=== PATIENT | male | born 1960 ===

== ENCOUNTER 2019-04-01 10:40 | Inpatient (IN) ==
[2019-04-01] MEDS: PERCOCET-5 PO PRN ×4 (12:09→22:47)
[2019-04-01] MEDS ORDERED: SALINE LOCK IV FLUID XX ONE (12:13)
[2019-04-01] MEDS: NS 1,000 ML IV SCH (16:18)
[2019-04-01] MEDS ORDERED: MAXIPIME 2 GM in NS 100 ML IV SCH (16:30)
[2019-04-01] MEDS ORDERED: VANCOMYCIN IV PER PHARMACY MISC SCH (16:30)
[2019-04-01 17:31] LABS: BASO# 0.04 X1000 (0.0-0.2); BASO% 0.4 % (0.0-0.8); EOS# 0.35 X1000 (0.0-0.7); EOS% 3.3 % (0.0-10.0); HEMOGLOBIN 12.8 g/dL (14.0-18.0); IMM GRAN# 0.03 X1000 (0.0-0.04); IMM GRAN% 0.3 % (0.0-0.5); LYMPH# 2.84 X1000 (1.2-3.4); LYMPH% 26.6 % (20.5-51.1); MCH 31.8 PG (27-31); MCHC 33.7 g/dL (33-37); MCV 94.3 FL (81-99); MONO# 0.75 X1000 (0.11-0.59); MPV 8.9 FL (7.4-10.4); NEUT# 6.65 X1000 (1.4-6.5); NEUT% 62.4 % (42.2-75.2); PLT 380 X1000 (130-400); RBC 4.03 XMIL (4.7-6.1); RDW 12.7 % (11.5-14.5); WBC 10.66 X1000 (4.8-10.8)
[2019-04-01 18:15] LABS: AGAP 10; ALB/GLOB RATIO 0.8; ALBUMIN 3.4 g/dL (3.5-5.0); ALKALINE PHOSPHATASE 85 U/L (32-122); BUN 9 mg/dL (8-22); CALCIUM 9.1 mg/dL (8.8-10.2); CHLORIDE 101 mmol/L (98-107); COSMO 272; CREATININE 0.8 mg/dL (0.7-1.2); GLUCOSE 95 mg/dL (70-104); GOT 24 U/L (10-34); GPT 38 U/L (10-44); POTASSIUM 3.8 mmol/L (3.5-5.1); SODIUM 137 mmol/L (136-145); TCO2 26 mmol/L (25-35); TOTAL BILIRUBIN 0.31 mg/dL (0.20-1.00); TOTAL PROTEIN 7.9 g/dL (6.3-8.3)
[2019-04-01] MEDS: MAXIPIME 2 GM in NS 100 ML IV SCH (18:37)
[2019-04-01] MEDS: VANCOMYCIN 2,000 MG in NS 500 ML IV SCH (21:00)
--- NOTE | 2019-04-01 21:32 | INFECTIOUS DISEASE CONSULT REP ---
DATE: 04/01/2019 CONCLUSION: Mr. Abernathy has a left foot osteomyelitis and the plan is for Dr. Fletcher to do surgery on that left foot tomorrow. RECOMMENDATIONS: At this point, we have ordered basic blood work for the patient, as well as plans for broad-spectrum coverage using IV vancomycin per Pharmacy dosing and Maxipime 2 g IV every 12 hours. He has previously had a rash with penicillin years ago, so we will have the nurse watch him during his first dose of cefepime. Hopefully, Dr. Fletcher will be able to get a culture from surgery tomorrow, which will help to guide the patient's treatment. Based on the organism, he will need between 6 and 8 weeks of treatment for the osteomyelitis. He has been instructed to report any side effects of the medications which may include rash, diarrhea, oral candidiasis, ototoxicity, and renal toxicity. These plans have been discussed with and recommended by Dr. Simental. DISCUSSION: Mr. Abernathy states that this episode started on March 11, when he dropped a large can of boiled peanuts on his foot at work. The area got continually worse with redness and swelling. He has been on cefdinir per Dr. Fletcher, with some improvement to the swelling of the left lower extremity. There is continued erythema and pain to that site. Noted that he states he had a Staph infection to his left arm, which has just recently healed. He did receive antibiotics and wound care. However, he does not remember the name of the antibiotic or if the Staph was resistant. LAB & X-RAY: Unavailable at this point. REVIEW OF SYSTEMS: Constitutional: The patient has had a temperature of up to 101 at home with intermittent chills and a weight loss of 24 pounds which started when he was scratched at work 10 weeks ago with a Staph infection to his left forearm. HEENT: He denies any vision or hearing problems. No headaches or dizziness. Endocrine: He is diabetic, type 2, with insulin and oral antidiabetic medications. Cardiovascular: No chest pain or palpitations. Respiratory: He does have shortness of breath and cannot walk far. 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 He does have a smoker's cough which is dry, with history of hypertension, and congestive heart failure. Myocardial infarction in 2016, with no intervention. He also has hyperlipidemia. Gastrointestinal: No nausea, vomiting, or diarrhea. He has had decreased appetite with weight loss. No gastric ulcers or acid reflux. Genitourinary: No dysuria or flank pain. Musculoskeletal: He does have arthritis with joint and muscle pain. He is unable to walk far due in part to the arthritis. Hematology/Oncology: He denies any history of cancers or blood dyscrasias. Psychiatric: No anxiety or depression. PAST MEDICAL HISTORY: Includes diabetes type 2, hypertension, COPD, congestive heart failure, myocardial infarction, and hyperlipidemia. PAST SURGICAL HISTORY: Umbilical and gastric lining hernias surgically repaired, and neck fusion. INFECTIOUS DISEASE: No history of pneumonia or urinary tract infections, but he has had a left forearm Staph infection with specifics unknown. FAMILY HISTORY: His mom had heart disease and cancer. SOCIAL HISTORY: He lives with his . He has a [id number]-year smoking history. He states he has smoked approximately 45 years and has smoked more than 4 packs a day for most of those years. He has no pets at home. 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 ALLERGIES: Penicillin from when he was a child and he had a rash. However, he is currently taking cefdinir without any issues. MEDICATIONS: Include aspirin, Lipitor, Coreg, cefdinir, Lasix, glipizide, metformin, hydrocodone, losartan, Norvasc, and Trulicity. PHYSICAL EXAMINATION: Vital Signs: Temperature is 97.6 degrees, pulse rate 69, respiratory rate 18, blood pressure 120/62, O2 saturation is 99% on room air. General: This is a somewhat ill appearing, middle-aged gentleman. He is lying in the bed, currently in no acute distress. HEENT: Atraumatic, normocephalic. Oral mucous membranes are pink and moist. Conjunctivae are pink. Neck: Supple. Trachea is midline. Cardiovascular: Heart rate is regular. Respiratory: Lung sounds have some mild wheezes noted in the upper lobes. Diminished in the mid and bases. No work of breathing is noted at rest. Abdomen: Soft, obese, and nontender. Bowel sounds are active. Integumentary: Skin is warm, dry, and intact. There is some erythema and edema noted to the left foot, but no open areas. Neurologic: He is awake, alert, oriented, able to move around in the bed and ambulate independently. Thank you for allowing us to see Mr. Abernathy. Dictated by JACQUIE Garzon for Deandre Simental MD cc: MD Jesus Grimes MD MTDD
[2019-04-02] MEDS: PERCOCET-5 PO PRN ×6 (02:33→19:56)
[2019-04-02] MEDS: NS 1,000 ML IV SCH (06:18)
[2019-04-02] MEDS: VANCOMYCIN 2,000 MG in NS 500 ML IV SCH ×2 (09:43→22:49)
[2019-04-02] MEDS ORDERED: FENTANYL ONE (11:01)
[2019-04-02] MEDS ORDERED: VERSED ONE (11:01)
--- NOTE | 2019-04-02 11:01 | HISTORY AND PHYSICAL ---
CHIEF COMPLAINT: Left foot cellulitis. HISTORY OF PRESENT ILLNESS: Mr. Abernathy is a 58-year-old male with a past medical history of type [address] Fletcher's office yesterday with a left painful foot. Mr. Abernathy states, about 3 weeks ago, he dropped a can of peanuts on the foot. Ever since then, it has been increasingly painful and swollen. He states over the last couple of days, it had increasing erythema to the area. The foot is now very tender. He is having trouble weightbearing on it. He presented to clinic for further evaluation and treatment. On arrival to the clinic, Dr. Fletcher decided that he needed to be admitted for IV antibiotics as well as an infectious disease consult. It was also discussed that we would do a bone biopsy with possible irrigation and debridement today in the OR. PAST MEDICAL HISTORY: Diabetes mellitus type 2, primary essential hypertension. ALLERGIES: Penicillins. SOCIAL HISTORY: Mr. Abernathy lives at home with his . He denies tobacco, alcohol, or illicit drug use. CURRENT MEDICATIONS: Aspirin 81 mg p.o. daily, Lipitor 40 mg p.o. at bedtime, Coreg 6.5 mg p.o. b.i.d., Lasix 40 mg p.o. daily, metformin 1 tablet p.o. daily, Elrod 7.5 mg 4 times a day as needed, losartan potassium 100 mg p.o. daily, Norvasc 5 mg p.o. at bedtime, Trulicity 1.5 mg subcutaneously as directed. REVIEW OF SYSTEMS: A 10 point review of systems was obtained and completed, and was negative except for what was mentioned above in the HPI. PHYSICAL EXAMINATION: CURRENT VITAL SIGNS: Temperature is 98.1 degrees, pulse is 100, respirations 16, blood pressure 122/92, and he is 95% on room air. GENERAL: This is a 58-year-old male in no acute distress. NEUROLOGICAL: He is alert and oriented x3 with no focal deficits. HEENT: Head is atraumatic, normocephalic. Pupils equal, round, reactive to light. CARDIOVASCULAR: Regular rate and rhythm. PULMONARY: Breathing is even and nonlabored. ABDOMEN: Appears nondistended. EXTREMITIES: The left lower extremity does have quite a bit of erythema throughout the midfoot and forefoot. He is very tender to touch. He has quite a bit of edema. He does have a 2+ pedal pulse. He does have good sensation to the hindfoot. About the midfoot, he starts to have decreased sensation. In the toes, he still has sensation but it is greatly decreased. LABORATORY DATA: White count is 10.66, hemoglobin and hematocrit are 12.8 and 38, platelet count is 127,000. BUN and creatinine are 9 and 0.8. ASSESSMENT: Left foot cellulitis. PLAN: We are going to consult Dr. Simental with infectious disease. We are going to let him get him started on some IV antibiotics. We are going to take him to the OR today and plan to do a bone biopsy of that first metatarsal. If we get in there and there is purulent drainage, we will plan on doing an irrigation and debridement to bone while we are in there and place antibiotic beads. If everything is nice and calm internally in the foot, we will just plan to do the bone biopsy and send that off to rule out osteomyelitis. We discussed the risks and benefits of the procedure with Mr. Abernathy. His is at the bedside. Risks include, but are not limited to, damage to nerves, arteries, veins, DVT, risk of infection, poor wound healing, risk of general anesthesia, and other imponderables. The patient understands and wished to proceed. He is NPO. We are going to plan to do this today. Dictated by JACQUIE Zayas for Jesus Fletcher MD cc: JACQUIE Zayas MD [facility]
[2019-04-02] MEDS ORDERED: DIPRIVAN 1% ONE (11:02)
[2019-04-02] MEDS ORDERED: SENOKOT PO PRN (14:50)
[2019-04-02] MEDS ORDERED: ZOFRAN IV PRN (14:50)
[2019-04-02] MEDS: DILAUDID ONE ×4 (14:55→15:18)
[2019-04-02] MEDS: MAXIPIME 2 GM in NS 100 ML IV SCH (17:02)
--- NOTE | 2019-04-02 19:44 | OPERATIVE NOTE ---
PROCEDURE DATE: 04/02/2019 PREOPERATIVE DIAGNOSES: 1. Left first metatarsal osteomyelitis. 2. Left foot abscess and cellulitis. POSTOPERATIVE DIAGNOSES: 1. Left first metatarsal osteomyelitis. 2. Left foot abscess and cellulitis. PROCEDURE: 1. Left irrigation and debridement of foot to bone. 2. Left partial excision of first metatarsal. SURGEON: Jesus Fletcher MD. BIOLOGICAL PLANT OPERATOR: JACQUIE Zayas. She was an integral part of the case, helping with all aspects of the case, helping to increase our OR efficiency greatly. ANESTHESIA: General with LMA. TOURNIQUET TIME: Less than an hour. SPECIMENS/PATHOLOGY: Cultures were taken and sent to Pathology. IMPLANTS: None. DISPOSITION: PACU, hemodynamically stable. INDICATION FOR PROCEDURE: Mr. Abernathy is a 58-year-old male, who had trauma a few weeks ago to his foot. Unfortunately, developed some redness and that got a lot worse. He came into my office yesterday. I admitted him to the hospital and got him on IV antibiotics. I discussed with him about surgical intervention today, and he expressed understanding and wished to proceed. DESCRIPTION OF PROCEDURE: Mr. Abernathy was identified in the preoperative holding area. The left foot was marked as the correct surgical site. He was then wheeled to the operating room and placed supine on the operating table. All bony prominences were well padded. He was induced under general anesthesia. LMA was placed. Tourniquet was placed to the left thigh. Left lower extremity then prepped with chlorhexidine gluconate scrub and then ChloraPrep, and draped in normal sterile fashion. Surgical pause was performed. We identified the correct patient, correct side, and the correct procedure. Preoperative antibiotics were given. There were no ulcers to the foot or areas of skin breakdown. We started with a medial incision over the first metatarsal. I cut through down to the metatarsal and there was purulence that came up. We took cultures at that time. I then opened the incision up a little bit bigger so we could get at the whole metatarsal. It looked like there was pus all in the subcutaneous tissue, and then there was pus also underneath the periosteum, and really all of the periosteum had been elevated off of that first metatarsal secondary to all the purulence that was there. I then drilled into the bone and there was pus inside the bone. I ended making several drill holes in the bone, then using a rongeur to connect those and made a trough. I then curetted out a lot of that purulent material that was inside the bone back to healthy-appearing bone. I then used a big curette and curetted all of the subcutaneous tissue and all of the soft tissue around that area to perform a thorough debridement, and used a rongeur also to perform a thorough debridement. We accessed all of the areas around the aspect of the foot so that no purulence was left. We then irrigated everything copiously with normal saline. I then closed some of the periosteum with 2-0 Maxon and then closed the skin with nylon. Adaptic, 4 x 4's, ABD, soft roll, and posterior splint was applied. Tourniquet was let down. He had good capillary refill return to the toes. He was then wheeled from general anesthesia, moved to his own bed, and taken to PACU in stable condition. PLAN: Postoperatively, he will be nonweightbearing to left lower extremity. He is admitted. Infectious disease is following along as well, with IV antibiotic recommendations, and we will check on him in the morning. cc: Jesus Fletcher MD
[2019-04-02] MEDS: MORPHINE IV PRN (22:28)
[2019-04-03] MEDS: MAXIPIME 2 GM in NS 100 ML IV SCH ×2 (03:31→06:46)
[2019-04-03] MEDS: MORPHINE IV PRN ×3 (03:32→20:35)
[2019-04-03] MEDS: LOVENOX SUBQ SCH (06:38)
[2019-04-03] MEDS: PERCOCET-5 PO PRN ×3 (06:38→18:16)
--- NOTE | 2019-04-03 08:28 | ORTHOPAEDICS PROGRESS NOTE ---
DATE: 04/03/2019 SUBJECTIVE: Mr. Abernathy is sitting up in bed this morning. Overall feeling okay. OBJECTIVE: Right lower extremity exam: Splint is clean, dry, and intact. He has good capillary refill to all the toes. He has numbness to the toes. ASSESSMENT: Right first metatarsal osteomyelitis status post irrigation and debridement. PLAN: I discussed with Mr. Abernathy about his surgery. We had to trough the bone open and really wash everything out. There was a lot of purulence everywhere. He is on IV antibiotics now. We do not have any growth from his cultures yet although gram-positive cocci were seen on his Gram stain. He will remain on broad-spectrum IV antibiotics. Dr. Simental is seeing him from an Infectious Disease standpoint. Mr. Abernathy is nonweightbearing to the right lower extremity for now. We will continue to assess to see if he is responding to the IV antibiotics and if we need to do another washout in a few days. cc: Jesus Fletcher MD
[2019-04-03] MEDS: PERIDEX MT SCH ×2 (10:04→20:30)
[2019-04-03] MEDS: VANCOMYCIN 2,000 MG in NS 500 ML IV SCH (12:15)
--- NOTE | 2019-04-03 18:56 | INFECTIOUS DISEASE PROGRESS NO ---
DATE: 04/03/2019 The patient has left foot methicillin-resistant Staph aureus osteomyelitis, cellulitis and abscess. I suspect that the patient will not grow another pathogen besides the methicillin- resistant Staph aureus. MEDICATIONS: The patient is on a combination of vancomycin and cefepime. PHYSICAL EXAMINATION: Vital Signs: Temperature is 97.7 degrees, pulse 70, respirations 20, blood pressure 180/94. General: This is an obese, middle-aged male. He is in no acute distress. Head, eyes, ears, nose, and throat: He can hear my spoken words and see near objects. No drainage noted from the nose or the ears. Neck: No pain with movement. Lungs: Clear to auscultation. Cardiovascular: Regular heart rate. Abdomen: Soft and nontender. Extremities: The left foot has a large dressing and splint around it. Neurologic: The patient is alert. He can move his extremities. There is no tremor. LAB AND X-RAY: There is new no new radiographic study. The patient's culture is growing presumptive methicillin-resistant Staph aureus. ASSESSMENT AND PLAN: Patient has methicillin-resistant Staph aureus left foot infection as mentioned above. I have discontinued cefepime. I plan to continue vancomycin. I plan to treat the patient for a total of 8 weeks with IV vancomycin. I went over again with the patient how important it would be for him to lose weight and keep good control of his diabetes and to stop smoking. COMORBIDITIES: The patient is obese. He has chronic obstructive pulmonary disease, diabetes mellitus and myocardial infarction. cc: MD Jesus Grimes MD
[2019-04-04] MEDS: VANCOMYCIN 2,000 MG in NS 500 ML IV SCH ×2 (01:08→15:09)
[2019-04-04] MEDS: MORPHINE IV PRN ×5 (03:15→20:00)
[2019-04-04] MEDS: LOVENOX SUBQ SCH (06:00)
[2019-04-04] MEDS: NS 1,000 ML IV SCH (08:09)
[2019-04-04] MEDS: PERIDEX MT SCH ×2 (09:51→21:29)
[2019-04-04] MEDS: PERCOCET-5 PO PRN (21:29)
[2019-04-05] MEDS: VANCOMYCIN 2,000 MG in NS 500 ML IV SCH ×2 (02:43→15:32)
[2019-04-05] MEDS: MORPHINE IV PRN ×4 (05:12→20:40)
[2019-04-05] MEDS: LOVENOX SUBQ SCH (05:12)
[2019-04-05 06:17] LABS: BASO# 0.02 X1000 (0.0-0.2); BASO% 0.2 % (0.0-0.8); EOS# 0.34 X1000 (0.0-0.7); EOS% 3.7 % (0.0-10.0); HEMATOCRIT 37.7 % (42.0-52.0); HEMOGLOBIN 12.5 g/dL (14.0-18.0); IMM GRAN# 0.03 X1000 (0.0-0.04); IMM GRAN% 0.3 % (0.0-0.5); MCH 30.7 PG (27-31); MCHC 33.2 g/dL (33-37); MCV 92.6 FL (81-99); MONO# 0.73 X1000 (0.11-0.59); MPV 9.2 FL (7.4-10.4); NEUT% 64.8 % (42.2-75.2); PLT 441 X1000 (130-400); RBC 4.07 XMIL (4.7-6.1); RDW 12.4 % (11.5-14.5); WBC 9.12 X1000 (4.8-10.8)
[2019-04-05 06:47] LABS: AGAP 12; BUN 7 mg/dL (8-22); CALCIUM 8.8 mg/dL (8.8-10.2); CHLORIDE 104 mmol/L (98-107); COSMO 275; CREATININE 0.6 mg/dL (0.7-1.2); GLUCOSE 122 mg/dL (70-104); POTASSIUM 4.1 mmol/L (3.5-5.1); SODIUM 138 mmol/L (136-145); TCO2 22 mmol/L (25-35)
[2019-04-05] MEDS: NS 1,000 ML IV SCH (09:59)
[2019-04-05] MEDS: PERIDEX MT SCH ×2 (10:00→21:03)
[2019-04-05] MEDS: PERCOCET-5 PO PRN ×2 (12:11→17:39)
--- NOTE | 2019-04-05 14:27 | ORTHOPAEDICS PROGRESS NOTE ---
DATE: 04/05/2019 SUBJECTIVE DATA: Mr. Abernathy is laying comfortably in bed with his at the bedside. He states his pain is much better. He has no issues. OBJECTIVE DATA: Left lower extremity exam: The surgical dressing is clean, dry, and intact. I was able to look at the toes and the forefoot which show no erythema. I do not see any drainage. He has good sensation to the toes. ASSESSMENT: Status post left foot irrigation and debridement to bone. PLAN: The plan is for Mr. Abernathy to receive 8 weeks of IV vancomycin. He was positive for MRSA today. We are going to work to get the PICC line and home infusion therapy setup on Saturday. The PICC line people are out today and tomorrow, so we will plan on him staying in the hospital until Saturday. We will work on getting his IV antibiotics setup for outpatient as well. It sounds like they are going to do home health and do it in the home. He will be nonweightbearing to this left lower extremity. I am going to come in tomorrow and put him in a new splint as this one is getting a little uncomfortable for him. That way we can take a good look at the incision and make sure everything is nice and calm. As long as things continue to look good, we will plan to get him discharged on Saturday after he gets his PICC line and IV antibiotics setup. If he does have any reoccurring erythema, drainage, or a lot of swelling, we may keep him longer. We will check on him again tomorrow. Dictated by JACQUIE Zayas for Jesus Fletcher MD cc: JACQUIE Zayas MD
--- NOTE | 2019-04-05 14:44 | INFECTIOUS DISEASE PROGRESS NO ---
DATE: 04/05/2019 PRESENT ILLNESS: The patient has a left foot methicillin-resistant Staph aureus osteomyelitis, cellulitis, and abscess. MEDICATIONS: The patient is receiving vancomycin as a single agent. PHYSICAL EXAMINATION: Vital Signs: Temperature is 98 degrees, pulse 79, respirations 16, blood pressure is 158/92. General: This is an obese, middle-aged male. He is in no acute distress. Head, eyes, ears, nose, throat: He can hear my spoken words and see near objects. There is no drainage coming from his nose or ears. I did not see any white patches on his tongue. Neck: No pain with movement. Lungs: Clear to auscultation. Cardiovascular: Heart rate is regular. Abdomen: Soft and nontender. Extremities: The patient has a large left foot dressing and splint around his left leg. The dressing is intact. Neurologic: Patient is alert. He can move his extremities. There is no tremor. LAB AND X-RAY: CBC today shows a white count of 9,120, hemoglobin 12.5, and platelet count 441,000. Creatinine is 0.6. GFR is greater than 60. A culture from the patient's foot was positive for methicillin-resistant Staph aureus. There is no new radiographic study on the patient's foot. ASSESSMENT AND PLAN: The patient has methicillin-resistant Staphylococcus aureus left foot infection as mentioned above. The patient will be going home on April 07. I have ordered that a PICC be placed and that [facility] be consulted to supply the patient's home IV vancomycin. The patient will need an 8 week treatment course. He will have had 4 days of treatment in here. Therefore, he will have 52 days left of treatment with vancomycin. The patient will be given an appointment to come to my office in 26 days and then again at 52 days. With the last visit, hopefully everything will look good and will be able to stop his IV vancomycin and to remove his PICC. I have talked with the patient about how important it is for him to lose weight, to control his diabetes well, and to stop smoking. COMORBIDITIES: The patient is obese. He has chronic obstructive pulmonary disease. He has diabetes mellitus. He has had a myocardial infarction and he is a cigarette smoker. cc: MD Jesus Grimes MD
[2019-04-05] MEDS: BENADRYL PO PRN (21:03)
[2019-04-06] MEDS: VANCOMYCIN 2,000 MG in NS 500 ML IV SCH ×2 (02:57→14:54)
[2019-04-06] MEDS: MORPHINE IV PRN ×3 (03:00→18:27)
[2019-04-06] MEDS: LOVENOX SUBQ SCH (06:37)
[2019-04-06] MEDS: PERCOCET-5 PO PRN ×2 (08:23→14:40)
[2019-04-06] MEDS: PERIDEX MT SCH ×2 (08:23→21:00)
--- NOTE | 2019-04-06 12:42 | ORTHOPAEDICS PROGRESS NOTE ---
DATE: 04/06/2019 SUBJECTIVE: Mitchel Abernathy is a 57-year-old male with left foot osteomyelitis. He is complaining primarily of itching. OBJECTIVE: He is a well-developed, well-nourished male. He is alert and cooperative with the exam. I have taken down his dressing today. His wound looks good. Dr. Simental also looked at it as well. IMPRESSION: Left foot osteomyelitis. PLAN: He is going to get a PICC line and home IV antibiotics starting tomorrow. He will likely go home tomorrow. cc: MD Jesus Mccullough MD
[2019-04-06] MEDS: NS 1,000 ML IV SCH (14:25)
[2019-04-06] MEDS: BENADRYL PO PRN (18:27)
[2019-04-07] MEDS: MORPHINE IV PRN (00:42)
[2019-04-07] MEDS: VANCOMYCIN 2,000 MG in NS 500 ML IV SCH (04:08)
[2019-04-07 05:55] LABS: BASO# 0.04 X1000 (0.0-0.2); BASO% 0.4 % (0.0-0.8); EOS# 0.32 X1000 (0.0-0.7); EOS% 3.6 % (0.0-10.0); HEMATOCRIT 38.7 % (42.0-52.0); HEMOGLOBIN 12.9 g/dL (14.0-18.0); IMM GRAN# 0.05 X1000 (0.0-0.04); IMM GRAN% 0.6 % (0.0-0.5); LYMPH# 2.24 X1000 (1.2-3.4); LYMPH% 25.1 % (20.5-51.1); MCH 31.1 PG (27-31); MCHC 33.3 g/dL (33-37); MCV 93.3 FL (81-99); MONO% 6.7 % (1.7-9.3); MPV 8.9 FL (7.4-10.4); NEUT# 5.69 X1000 (1.4-6.5); NEUT% 63.6 % (42.2-75.2); PLT 463 X1000 (130-400); RBC 4.15 XMIL (4.7-6.1); RDW 12.7 % (11.5-14.5); WBC 8.94 X1000 (4.8-10.8)
[2019-04-07 06:03] LABS: INR 1.18; PROTIME 15.2 Seconds (11.0-16.0)
[2019-04-07] MEDS: LOVENOX SUBQ SCH (06:48)
[2019-04-07] MEDS: PERCOCET-5 PO PRN ×3 (07:15→15:06)
--- NOTE | 2019-04-07 07:51 | ORTHOPAEDICS PROGRESS NOTE ---
DATE: 04/07/2019 SUBJECTIVE: Mr. Abernathy is sitting up in bed this morning. OBJECTIVE: Left lower extremity exam, we took the dressing and splint down this morning. I then took a look at his wound. Incision actually looked fairly dry overall. There is some peeling skin around there but a lot of the swelling has come down and a lot of his erythema has begun to resolve. ASSESSMENT: 1. Left first metatarsal osteomyelitis. 2. Left foot abscess. 3. Status post irrigation and debridement. PLAN: I discussed with Mr. Abernathy about the foot. I want him to be nonweightbearing at this point. He will need 8 weeks of IV antibiotics per Dr. Simental's recommendations. I am okay with him going home today if he can get his PICC in today. We will plan on discharging him this afternoon. I would like to see him this Saturday in clinic to evaluate his wound. He will go home with Percocet for pain control. cc: Jesus Fletcher MD
[2019-04-07] MEDS ORDERED: NS 250 ML ONE (08:57)
[2019-04-07] MEDS: PERIDEX MT SCH (09:52)
[2019-04-07 15:36] VITALS: BP 174/96
--- NOTE | 2019-04-14 15:54 | DISCHARGE SUMMARY ---
ADMISSION DATE: 04/01/2019 DISCHARGE DATE: 04/07/2019 ADMITTING DIAGNOSES: 1. Left foot abscess and cellulitis. 2. Left foot metatarsal osteomyelitis. 3. Diabetes mellitus type 2. DISCHARGE DIAGNOSES: 1. Left foot abscess and cellulitis. 2. Left foot metatarsal osteomyelitis. PROCEDURES: On 04/02/2018, Dr. Fletcher performed a left irrigation debridement of foot to bone with partial excision of the first metatarsal. HOSPITAL COURSE: Mr. Abernathy is a 58-year-old male who had a trauma a few weeks ago to the foot. Dr. Fletcher saw him in the office. The foot had a lot of swelling and erythema. At the time that he was seen in the office, Dr. Fletcher actually admitted him to the hospital and had him started on IV antibiotics. They then discussed surgical intervention and the patient wished to proceed. He was brought to the operating room where satisfactory anesthesia was obtained. He tolerated the procedure well and was transferred to recovery. After a satisfactory recovery, he was transferred to [address] [place] [address]. He has been on IV antibiotics postoperatively. We did consult Dr. Simental who has also been to see him. Dr. Simental has gotten him set up with his PICC line and home IV antibiotics. He will be going home on vancomycin q.12 hours. We will plan to do this for 8 weeks. His white count at the time of discharge was 8.94, hemoglobin and hematocrit 12.9 and 38.7. His platelet count was 463,000. His BUN and creatinine was 7 and 0.6 His vital signs at time of discharge, temperature 98.1 degrees, pulse 77, respirations 16, blood pressure 174/96. He is saturating 97% on room air. Assessment on discharge, the splint was taken down and the foot is very calm. His edema has gone way down and he has very little erythema. His incision looks good. There is no drainage. DISCHARGE MEDICATIONS: Aspirin 325 mg p.o. for 30 days. , Lipitor 40 mg p.o. at bedtime, Coreg 6.25 mg p.o. b.i.d., Lasix 40 mg p.o. daily, metformin 3 times a day, Percocet 5 mg p.o. daily. Trulicity 1.5 mg subcu as directed, Norvasc 5 mg p.o. at bedtime, losartan 100 mg p.o. daily. DISCHARGE DISPOSITION: Mr. Abernathy will be discharged home with a PICC line. He has a very supportive . He will be sent home on [facility] for IV antibiotic therapy. They have already set up his vancomycin q.12 hours IV. His family will be educated on how to start his antibiotics and care for the PICC line. He will be nonweightbearing to this left lower extremity. We will see him back in the office in 1 to 2 weeks and take down the splint and reassess everything. I have talked to him about postoperative signs and symptoms of infection. He is going to call the office with any questions or concerns. Dictated by JACQUIE Zayas for Jesus Fletcher MD cc: JACQUIE Zayas MD
== END 2019-04-07 16:04 | disposition home health service (06) | DRG 629 ==
LOC: DIRADM 10:40 → EDIPHOLD 11:26 → 4N 13:11 → EDIPHOLD 13:47 → 4N 15:01
PROVIDERS: ADMIT Orthopaedic Surgery; ATTEND Orthopaedic Surgery